=== PATIENT | female | born 1980 | race Caucasian/White ===

== ENCOUNTER 2021-06-05 07:54 | Emergency (ER) | payer OTHER, SELFPAY ==
[2021-06-05 07:59] VITALS: BP 145/100; PULSE 51; RESP 16; TEMP 36.2; O2SAT 100
--- NOTE | 2021-06-05 08:36 | ED.ALLEREA ---
HPI - Allergic Reaction General Chief complaint: Allergic Reaction Stated complaint: allergic reaction Time Seen by Provider: 06/05/21 08:24 Source: patient Mode of arrival: ambulatory Limitations: no limitations History of Present Illness HPI narrative: Patient is 41 years old white female woke up yesterday morning with mosquito-like bite to her left leg, later started having scattered hives with severe itching, this morning have scratchy throat and rash got worse. History of allergy. Patient is not sure what triggered this 1. Patient denies difficulty swallowing or breathing. Patient is . Related Data Home Medications Medication Instructions Recorded Confirmed PNV,calcium [id number] acid tablet 06/05/21 [ Vitamin Plus Low Iron] fluoxetine mg 06/05/21 Allergies Allergy/AdvReac Type Severity Reaction Status Date / Time clarithromycin Allergy Unknown Unknown Verified 06/05/21 08:08 acetaminophen AdvReac Unknown Headache Verified 06/05/21 09:26 hydrocodone AdvReac Unknown Headache Verified 06/05/21 09:26 tramadol AdvReac Unknown Headache Verified 06/05/21 09:26 Review of Systems Review of Systems: CONSTITUTIONAL: Denies fever, chills, or sweats. EYES: Denies visual changes, redness, or discharge. ENT: Denies rhinorrhea, congestion, sore throat, or otalgia. CARDIOVASCULAR: Denies chest pain, palpitations, or edema. RESPIRATORY: Denies cough or dyspnea. GASTROINTESTINAL: Denies abdominal pain, nausea, vomiting, or diarrhea. GENITOURINARY: Denies dysuria or hematuria. SKIN: Denies rash or itching. MUSCULOSKELETAL: Denies back pain, joint pain, or myalgia. NEUROLOGIC: Denies headache, numbness, or weakness. PSYCHIATRIC: Denies anxiety or depression. Exam Narrative: General appearance: Well-developed, well-nourished Skin: Normal color, scattered hives Head: Normocephalic, nontraumatic Eyes: Clear conjunctiva ENT: Oropharynx normal, ears normal, nose normal Neck: Supple, nontender Chest and respiratory: Airway patent, no respiratory distress, no accessory muscle use Heart: Regular rate/rhythm Abdomen: Soft, nontender, no organomegaly, quiet bowel sounds Vascular: Normal peripheral pulses, normal capillary refill. Musculoskeletal: Normal range of motion, nontender back Neurologic: Alert and oriented ?3, [employer] is normal as tested, no gross motor deficit Course Course Emergency Course: Improving Reevaluation(s) Reevaluation #1: Patient feeling much better, less itching Date: 06/05/21 Time: 10:37 Vital Signs Vital signs: Vital Signs Temperature 36.2 C L 06/05/21 07:59 Pulse Rate 51 L 06/05/21 07:59 Respiratory Rate 16 06/05/21 07:59 Blood Pressure 145/100 H 06/05/21 07:59 Pulse Oximetry 100 06/05/21 07:59 Temperature 36.2 C L 06/05/21 07:59 Pulse Rate 80 06/05/21 10:35 Respiratory Rate 16 06/05/21 10:35 Blood Pressure 123/78 06/05/21 10:35 Pulse Oximetry 98 06/05/21 10:35 MDM - Allergic Reaction MDM Narrative Medical decision making narrative: Acute allergic reaction Critical Care Time Critical Care Time Critical Care Time: No Discharge Plan Discharge Clinical Impression: Allergic reaction Qualifiers: Encounter type: sequela Qualified Code(s): T78.40XS - Allergy, unspecified, sequela Patient Disposition: Home, Self-Care Condition: Improved Instructions: Antibiotic Form, General Allergic Reaction (ED) Additional Instructions: Return if symptoms are worsening , call your family physician for appointment, take Tylenol as as needed for aches and pain, continue home medications. Prescriptions: New prednisone 20 mg tablet 40 mg PO BID Qty: 10 RF: 0 d
[2021-06-05] MEDS: predniSONE 20 MG TABLET 60 MG PO (08:48)
[2021-06-05] MEDS: diphenhydrAMINE HCl CAP 25 MG CAPSULE 50 MG PO (08:49)
[2021-06-05] MEDS: EPINEPHrine HCL INJ 1 MG/ML AMPUL 0.3 MG IM (08:49)
[2021-06-05 08:51] VITALS: BP 115/88; PULSE 76; RESP 17; O2SAT 98
[2021-06-05] MEDS: EPINEPHrine HCL INJ 1 MG/ML AMPUL 0.5 MG IM (09:41)
[2021-06-05 09:51] VITALS: BP 134/94; PULSE 73; RESP 16; O2SAT 98
[2021-06-05 10:35] VITALS: BP 123/78; PULSE 80; RESP 16; O2SAT 98
== END 2021-06-05 10:41 | disposition home or self-care (01) ==
PROVIDERS: Emergency Provider Emergency Medicine
DX: T78.40XA Allergy, unspecified, initial encounter (principal)
CPT/HCPCS: 96372; 99284; A9270; J0171; J7512

== ENCOUNTER 2021-06-06 11:11 | Emergency (ER) | payer OTHER, SELFPAY ==
--- NOTE | ~2021-06-06 | US_ITS ---
EXAMINATION: US OB <=14 wk fetus w TV DATE: 06/06/2021 12:44 INDICATION: Vaginal bleeding during first trimester TECHNIQUE: Real-time pelvic transabdominal and transvaginal ultrasound was performed. COMPARISON: None. FINDINGS: The uterus measures 8.9 x 4.6 x 5.1 cm. No intrauterine gestational sac is identified. The endometrial thickness measures 7 mm. The left ovary is not visualized however no left adnexal abnormality is seen. The right ovary measure s 2.7 x 2.4 x 2.6 cm. There is normal vascular flow in the right ovary. There is no free fluid in the pelvis. IMPRESSION: 1. of unknown location. Although no intrauterine gestational sac is seen, this may be due t o early gestation. If the patient is clinically stable, recommend followup with serial beta-hCG and u ltrasound. Reviewed, dictated and finalized at location A. IMPRESSION: 1. of unknown location. Although no intrauterine gestational sac is s een, this may be due to early gestation. If the patient is clinically stable, r ecommend followup with serial beta-hCG and ultrasound.
[2021-06-06 11:16] VITALS: BP 129/84; PULSE 84; RESP 16; TEMP 36.8; O2SAT 100
[2021-06-06 11:30] LABS: Basophils Percent Auto 0.1 % (0.2-1.2); Hemoglobin 13.6 g/dL (12.0-15.0); Immature Granulocyte Absolute 0.11 K/mm3 (0.00-0.031); Immature Granulocyte Percent A 0.7 % (0-0.5); Lymphocytes Absolute Auto 0.87 K/mm3 (0.9-3.2); Lymphocytes Percent Auto 5.8 % (18.3-44.2); Mean Corpuscular HGB Conc 33.2 g/dl (32-36); Mean Corpuscular Hemoglobin 29.7 pg (26-34); Mean Corpuscular Volume 89.5 fl (80-100); Mean Platelet Volume 9.4 fl (7.4-10.4); Monocytes Absolute Auto 0.2 K/mm3 (0.1-0.6); Monocytes Percent Auto 1.4 % (2.6-8.5); Neutrophils Absolute Auto 13.7 K/mm3 (1.3-6.7); Platelet Count Result 287 k/mm3 (150-375); Red Blood Count 4.58 M/mm3 (4.2-5.4); Red Cell Distribution Width 12.4 % (11.5-14.5); White Blood Count 14.9 K/mm3 (4.5-10.0)
--- NOTE | 2021-06-06 11:43 | ED.FEMALEGU ---
HPI - Female Genitourinary General Chief complaint: Vaginal Bleeding Stated complaint: 4-6 weeks /bleeding Time Seen by Provider: 06/06/21 11:42 Source: patient Mode of arrival: ambulatory Limitations: no limitations History of Present Illness HPI Narrative: Patient is a 41-year-old female, at 5 weeks age of gestation complaining of vaginal bleeding and mild pelvic cramping started today. Patient denies any chest pain, shortness breath, abdominal pain, nausea, vomiting, fever or chills. Patient denies any urinary symptoms. Related Data Home Medications Medication Instructions Recorded Confirmed PNV,calcium [id number] acid tablet 06/05/21 [ Vitamin Plus Low Iron] fluoxetine mg 06/05/21 Allergies Allergy/AdvReac Type Severity Reaction Status Date / Time clarithromycin Allergy Unknown Unknown Verified 06/05/21 08:08 hydrocodone AdvReac Unknown Headache Verified 06/05/21 09:26 tramadol AdvReac Unknown Headache Verified 06/05/21 09:26 Review of Systems Review of Systems: All systems reviewed & are unremarkable except as noted in HPI and below Constitutional: Constitutional: Denies body ache(s), Denies chills, Denies excessive sweating, Denies fatigue, Denies fever(s), Denies headache(s), Denies lethargy, Denies malaise, Denies weakness and Denies weight loss Eyes: Eyes: Denies blurry vision, Denies change in vision and Denies loss of vision ENT: Denies dizziness, Denies ear discharge, Denies headache(s), Denies lip swelling, Denies epistaxis, Denies nasal congestion, Denies neck pain, Denies throat swelling and Denies tongue swelling Cardiovascular: Cardiovascular: Denies chest pain, Denies chest pain at rest, Denies chest pain with activity, Denies diaphoresis, Denies rapid heart rate, Denies edema, Denies irregular heart rhythm, Denies lightheadedness, Denies palpitations, Denies dyspnea and Denies dyspnea on exertion Respiratory: Respiratory: Denies chest congestion, Denies cough, Denies hemoptysis, Denies dyspnea and Denies dyspnea on exertion Gastrointestinal: Gastrointestinal: Denies abdominal pain, Denies melena, Denies hematochezia, Denies diarrhea, Denies nausea, Denies vomiting and Denies hematemesis Musculoskeletal: Musculoskeletal: Denies abnormal gait, Denies deformity, Denies joint swelling, Denies limited range of motion, Denies neck pain and Denies numbness Neurologic: Denies Abnormal speech present, Denies abnormal gait, Denies confusion, Denies dizziness, Denies headache(s), Denies focal weakness, Denies loss of vision, Denies numbness, Denies Other visual disturbances, Denies Sensory deficit (Neuro) and Denies weakness Psychiatric: Psychiatric: Denies confusion, Denies depression, Denies auditory hallucinations, Denies homicidal ideation and Denies suicidal ideation Endocrine: Endocrine: Denies cold intolerance, Denies excessive sweating, Denies fatigue, Denies heat intolerance and Denies palpitations Hematologic/Lymphatic: Hematologic/Lymphatic: Denies easy bleeding and Denies easy bruising Allergic/Immunologic: Allergic/Immunologic: Denies lip swelling, Denies throat swelling and Denies tongue swelling PMFSH Comments Past medical history: None Family history: Unknown Social history: Non-smoker no EtOH or drug use Exam Const: General: cooperative, healthy appearing, comfortable, no acute distress, well developed, alert and awake; No confusion Orientation/consciousness: oriented to person, oriented to place, oriented to time, patient oriented x3 and No confusion Limitations: no limitations HENMT: Head: normal to inspection, normocephalic and atraumatic Ears: hearing grossly normal bilaterally, TM normal on the right and TM normal on the left General nose exam: Normal external nose present, Normal nares present and No nasal discharge present Face and sinus: normal facial exam Mouth: Yes Normal oral and palatal mucosa present, Yes lip normal, Yes tongue normal and Yes orop
[2021-06-06 11:46] VITALS: BP 129/84; PULSE 84; RESP 18; TEMP 36.8; O2SAT 99
[2021-06-06 12:00] LABS: Beta HCG Quantitative 7.38 mIU/ML
[2021-06-06] MEDS: SODIUM CHLORIDE 0.9% IV 1,000 ML 999 ML IV CONT (12:37)
[2021-06-06 13:50] LABS: Add Urine Microscopic? YES; Appearance Urine Clear (Clear); Bilirubin Urine Negative (Negative); Blood Urine 3+ (Negative); Color Urine Yellow (Yellow); Glucose Urine UA 1+ mg/dL (Negative); Ketones Urine Trace mg/dL (Negative); Leukocyte Esterase Ur Negative LEU/UL (Negative); Mucus Urine Rare /lpf; Nitrate Urine Negative (Negative); Protein Urine 1+ mg/dL (Negative); Specific Grav Ur 1.025 (1.001-1.035); Squamous Epithelial Cell Urine Few /hpf (Few); Urobilinogen Urine Negative mg/dL (<2.0); WBC Urine 0-3 /hpf
== END 2021-06-06 14:34 | disposition home or self-care (01) ==
PROVIDERS: Emergency Provider Emergency Medicine
DX: O03.9 Complete or unspecified spontaneous abortion without complication (principal)
CPT/HCPCS: 36415; 76801; 76817; 81001; 84702; 85025; 85461; 96360; 99284; J7030